=== PATIENT | female | born 1995 | race Asian ===

== ENCOUNTER 2018-01-05 18:08 | Emergency (ER) | payer OTHER ==
[~2018-01-05] VITALS: Ht 160 cm; Wt 65.0 kg
[2018-01-05 18:15] VITALS: TEMP 37; Ht 160 cm; Wt 65.0 kg
[2018-01-05] MEDS ORDERED: SODIUM CHLORIDE 0.9% 1000ML 1,000 ML IV STA (18:43)
[2018-01-05] MEDS ORDERED: LORAZEPAM 1 MG TAB SL STA (18:43)
[2018-01-05] MEDS ORDERED: ONDANSETRON INJ 2 MG/ML 2 ML VIAL IV STA (18:43)
[2018-01-05 19:54] LABS: BASO % 0.2 %; BASO ABS # 0.02 K/uL (0-0.2); EOS % 0.5 %; EOS ABS # 0.04 K/uL (0-0.5); HEMATOCRIT 42.3 % (37-47); HEMOGLOBIN 13.8 g/dL (12.0-16.0); IG# 0.01 K/uL (0.00-0.02); LYMPH % 14.8 %; LYMPH ABS # 1.25 K/uL (1.2-3.4); MEAN CELL VOLUME 88.3 fL (80-100); MEAN CORPUSCULAR HEMOGLOBIN 28.8 pg (25-34); MEAN CORPUSCULAR HGB CONC 32.6 g/dl (32-36); MEAN PLATELET VOLUME 8.9 fL (7.4-10.4); MONO % 3.7 %; MONO ABS # 0.31 K/uL (0.11-0.59); NEUT % 80.7 %; NEUT ABS # 6.82 K/uL (1.4-6.5); PLATELET COUNT 300 K/uL (130-400); RED CELL DISTRIBUTION WIDTH CV 12.9 % (11.5-14.5); RED CELL DISTRIBUTION WIDTH SD 41.1 fL (36.4-46.3); WHITE BLOOD COUNT 8.45 K/uL (4.8-10.8)
[2018-01-05 20:10] LABS: ALBUMIN 4.2 gm/dl (3.4-5.0); CALCIUM 8.8 mg/dl (8.5-10.1); CREATININE 0.84 mg/dl (0.60-1.20); POTASSIUM 3.4 mmol/L (3.5-5.1)
[2018-01-05 20:15] VITALS: BP 102/67; PULSE 57; O2SAT 100
[2018-01-05 20:21] LABS: TOTAL PROTEIN 8.6 gm/dl (6.4-8.2)
[2018-01-05] MEDS ORDERED: ATIVAN 1MG HOMEPACK PO ONE (20:45)
[2018-01-05] MEDS ORDERED: ONDANSETRON HOME PACK 4MG OD TAB PO ONE (20:45)
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
== END 2018-01-05 20:45 | disposition home or self-care (01) ==
LOC: C.EDB 18:10 → C.EDA 20:45
DX: F41.9 Anxiety disorder, unspecified (principal); R11.10 Vomiting, unspecified; F32.9 Major depressive disorder, single episode, unspecified